=== PATIENT | female | born 1995 | race Caucasian/White ===

== ENCOUNTER 2016-06-21 14:05 | Emergency (ER) | payer OTHER ==
[~2016-06-21 14:05] MED LIST: DOXY100T PO; MIREIUD IU; ZOFR4TAB3 SL
[2016-06-21 14:07] VITALS: BP 124/70; PULSE 87; RESP 15; TEMP 98.2; O2SAT 98
== END 2016-06-21 16:10 | disposition left against medical advice (07) ==
LOC: NED 14:05
DX: Z53.21 Procedure and treatment not carried out due to patient leaving prior to being seen by health care provider (principal)
CPT/HCPCS: 99281